=== PATIENT | male | born 1990 | race Native Hawaiian/Other Pacific Islander ===

== ENCOUNTER 2018-08-18 07:07 | Day surgery (SDC) | payer OTHER, SELFPAY ==
[2018-08-18] VITALS (8 sets, daily range): BP systolic 96–118; BP diastolic 61–69; PULSE 64–85; RESP 10–18; TEMP 36.4–36.8; O2SAT 94–98; BMI 25.7
--- NOTE | 2018-08-18 | PATH_ITS ---
[facility] Accession Number: [id number] . 01 Material submitted: . PART A: RANDOM COLON BIOPSIES PART B: COLON MASS AT 25 PART C: RECTAL MASS PART D: BASE OF RECTAL MASS . 02 Diagnosis: A. Random Colon, Biopsies: Fragments of normal appearing colon mucosa. Negative for significant architectural distortion. Negative for significant inflammation, dysplasia and malignancy. . B. Biopsies, Colon Mass at 25 cm: Large polypoid tubular adenoma apparently excised in the plane of section. . C. Biopsies, Rectal Mass: Multiple fragments of polypoid complex villous adenoma. Negative for evidence of malignancy. . D. Biopsy, Base of Rectal Mass: Small fragments of tubular adenoma, negative for malignancy. [facility]/08/20/2018 . 02 Electronically signed: . Tj Sherwood MD, Pathologist NPI- [id number] . 01 Gross description: . (A) Received in formalin, labeled random BX, are two fragments of harper-white and semitranslucent tissue (0.5 x 0.2 by less than 0.1 cm and 0.3 x 0.2 x 0.1 cm). Entirely submitted in cassette A1. (B) Received in formalin, labeled colon mass at 25, is a dark brown rubbery polypoid mass (1.5 x 0.7 x 0.4 cm). The resection margin is inked black. Bisected and entirely submitted in cassette B1. (C) Received in formalin, labeled rectal mass, are multiple pieces of harper rubbery polypoid tissue (5.0 x 3.4 x 2.1 cm in aggregate). The tissue is partially friable and the resection margin cannot be determined. Serially sectioned and entirely submitted in cassette C1-C6. (D) Received in formalin, labeled base of rectal mass, are multiple fragments of harper tissue (0.8 x 0.3 x 0.1 cm in aggregate). Filtered and entirely submitted in cassette D1. ([id number]) /MRV . 02 Pathologist provided ICD-10: D12.8 . 02 CPT . 667358, 503054, 285052, 688032 Specimen Comment: A duplicate report has been generated due to demographic updates. Performed at: 01 [facility] [address] [address], [place], [place] [id number] MD Elias Edgar MD Phone: [phone] Performed at: 02 [facility] [address] [place] [id number] MD Niki Hernandez MD Phone: [phone]
[2018-08-18] MEDS: SODIUM CHLORIDE 0.9% 1,000 ML 42 ML IV (07:38)
[2018-08-18] MEDS: fentaNYL 250 MCG/5 ML INJ IV (08:20)
[2018-08-18] MEDS: MIDAZOLAM 5 MG/5 ML VIAL IV (08:21)
--- NOTE | 2018-08-18 08:42 | PM.PREOP ---
Pre-operative Note Interval Note Pre-op Check: Yes History & Physical Reviewed by Physician and Yes Exam Performed Changes: No ASA Class (for procedural sedation): I
--- NOTE | 2018-08-18 09:14 | PM.OP.ENDO ---
Operative Date/Time/Diagnoses Date of procedure: 08/18/18 Time of procedure: 09:15 Pre-op diagnosis: See indication and findings Post-op diagnosis: same Procedure & Clinicians Study performed: Colonoscopy Same procedure as scheduled: Yes Surgeon: Rachael Llamas Procedure Notes Procedure in detail: After informed consent was obtained the patient was placed in the left lateral decubitus position. The video colonoscope was introduced the rectum and slowly advanced to the cecum. Preparation was good. On slow withdrawal mucosa was carefully examined. Scope was removed. The patient tolerated the procedure well Blood loss none Complications none Sedation fentanyl 100 mcg Versed 7 mg IV titration Total sedation time 34 min Findings 1. Very large villous adenoma appearing rectal lesion. This takes up at least 1/4 of the rectum. I was able to snare off about a 3rd of the polyp and retrieve it. It does appear to be amenable to endoscopic resection though extensive. There was a clot on 1 aspect of it is clearly the source of bleeding. Biopsies were also taken in a separate bottle at the base of the lesion though these did not seem to be any firmer or unusual then the remainder. 2. 1.2 cm pedunculated polyp at 20 cm. Hot snared removed completely 3. Otherwise negative colonoscopy to cecum. Random biopsies taken to make sure there there is not any degree of microscopic colitis contributing to diarrhea. The 1st step is going to be getting back biopsy results. Will then have to decide on referral. His liver chemistries are substantially elevated and I think in the setting, since we will be able to completely rule out a small focus of neoplasia in some part of this large lesion, that he should undergo CT of the chest and abdomen. Referrals will be made following the results of the CT scan.
--- NOTE | 2018-08-18 10:37 | SUR.PHASEII ---
assumed care from dr mateo ward in to speak with pt and his , both voiced an understanding, written instructions sent home with pt along with pictures. pt dressed when ready and left in stable condition. vss and belly remained soft.
== END 2018-08-18 10:35 | disposition home or self-care (01) ==
PROVIDERS: PCP General Practice; Visit Provider Internal Medicine Gastroenterology
PROC: 0DJD8ZZ Inspection of Lower Intestinal Tract, Via Natural or Artificial Opening Endoscopic (ICD-10-PCS; CPT 45378; principal; 2018-08-18 08:30)
DX: K92.1 Melena (principal); R19.7 Diarrhea, unspecified; D12.8 Benign neoplasm of rectum
CPT/HCPCS: 45385; 45380; 88305; J2250; J3010

== ENCOUNTER → 2018-08-30 09:03 | Outpatient (CLI) | payer OTHER, SELFPAY ==
--- NOTE | 2018-08-30 | DI.CT.S_ITS ---
PROCEDURE: CT CHEST ABD PEL W CON INDICATIONS: CHRONIC DIARRHEA. RECTAL MASS TECHNIQUE: After the administration of oral and intravenous contrast, 5 mm thick sections acquired from the lung apices to the symphysis. 5 mm coronal and sagittal reformats were performed, with additional 7 mm coronal MIP reformats through the lungs. For radiation dose reduction, the following was used: automated exposure control, adjustment of mA and/or kV according to patient size. COMPARISON: None. FINDINGS: Image quality: Excellent. CHEST: Lungs and pleura: No acute airspace opacities. 3 mm subpleural nodule noted in the right middle lobe (series 3, image 41). A 4 mm nodule noted in the right upper lobe (series 3, image 24). No pleural effusions or pneumothorax. Central and peripheral airways appear patent and normal in caliber. Mediastinum: Heart size is normal. No pericardial effusion. No mediastinal or hilar adenopathy by size criteria. Thoracic aorta and central pulmonary arteries are normal in size. Esophagus is normal in caliber. No hiatal hernia. Chest wall: No axillary or supraclavicular adenopathy by size criteria. Thyroid gland is within normal limits. ABDOMEN: Solid organs: Liver is normal in size and enhancement. Mild, diffuse fatty infiltration of the liver is noted. 1.1 cm hypoattenuating lesion with peripheral, nodular enhancement compatible with hemangioma noted in the anterior-inferior subsegment of the right lobe of the liver. Gallbladder is within normal limits. Biliary system is non dilated. Pancreas enhances normally. Spleen is normal in size and enhancement. No adrenal nodules. Kidneys demonstrate normal size and enhancement, without hydronephrosis. Peritoneum and bowel: Bowel loops demonstrate normal wall thickness and caliber. There is prominence of the rectal mucosa in a heterogeneous enhancement involving the rectal mucosa. No free fluid or air. Nodes and vessels: No retroperitoneal or mesenteric adenopathy by size criteria. Aorta and inferior vena cava are normal in size. Miscellaneous: No ventral hernias. PELVIS: Genitourinary: Bladder wall thickness is normal. Miscellaneous: No inguinal hernias or adenopathy. Bones: No suspicious bony lesions. No vertebral body compression fractures. Convex right curvature of the lumbar spine is noted. IMPRESSION: 1. 8mm right middle lobe a 4 mm right upper lobe subpleural solid nodules. Recommend follow up imaging based on criteria outlined below. 2. No lymphadenopathy based on size criteria. 3. Mild, hepatic steatosis. 4. Prominence and heterogeneity involving the rectal mucosa. Please correlate with colonoscopy findings. Fleischner Society criteria for SOLID lung nodule followup. Nodule size (mm)Low-risk patientHigh-risk patient<6 (single or multiple)No routine followup.Optional CT at 12 months. 6-8 (single or multiple)CT at 6-12 months, then optional CT at 18-24 mo.CT at 6-12 months, then CT at 18-24 months. >8 (single)CT at 3 months, PET-CT, or biopsy. Same as for low-risk pts. >8 (multiple)CT at 3-6 months, then optional CT at 18-24 mo.CT at 3-6 months, then CT at 18-24 months. Recommendations do not apply to lung cancer screening, patients with immunosuppression, or patients with known primary cancer. Dictated by: Yaneth Kline MD, PhD on 08/30/2018 at 14:43 Approved by: Yaneth Kline MD, PhD on 08/30/2018 at 14:54
== END ==
PROVIDERS: PCP General Practice; Visit Provider Internal Medicine Gastroenterology
DX: K62.9 Disease of anus and rectum, unspecified (principal); R19.7 Diarrhea, unspecified; R91.8 Other nonspecific abnormal finding of lung field; K76.0 Fatty (change of) liver, not elsewhere classified
CPT/HCPCS: 71260; 74177; Q9967

== ENCOUNTER 2019-08-09 10:25 | Emergency (ER) | payer OTHER, SELFPAY ==
[2019-08-09 10:32] VITALS: BP 128/79; PULSE 97; RESP 13; TEMP 35.6; O2SAT 98
--- NOTE | 2019-08-09 10:35 | ED.WOUNDLAC ---
HPI - Wound/Laceration General Chief Complaint: Wound/Laceration Stated Complaint: right hand cut Time Seen by Provider: 08/09/19 10:34
[2019-08-09] MEDS: BACITRACIN OINT 0.9 GM PCKT 2 APPLIC TOP (11:24)
[2019-08-09] MEDS: LIDO 1%/SOD BICARB 8.4% (10ML) 10 ML SYRINGE INJ (11:24)
--- NOTE | 2019-08-09 12:02 | PC.NURSE ---
right hand with multiple superficial laceration ,from a fan, occured at work approx 930am. [employer]. states, he got diaphoretic and with near syncopal, thats why he was sent to er.
--- NOTE | 2019-08-09 12:10 | ED_ITS ---
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 Tetanus immunization is up-to-date. Patient reports is able to move his hand without difficulty with intact sensation. No active bleeding at this time but patient states he was bleeding quite a lot when he tried to wash his hand with warm water after the injury. Related Data Allergies Allergy/AdvReac Type Severity Reaction Status Date / Time No Known Drug Allergies Allergy Verified 08/09/19 11:23 Review of Systems <BRENNAN Kirkpatrick - Last Filed: 08/09/19 21:38> Review of Systems Narrative: General: Denies fever, chills, fatigue, malaise, sweats. HEENT: Denies sinus pain, ear pain, sore throat, difficulty swallowing, dizziness. Respiratory: Denies dyspnea, cough, wheezing, hemoptysis, sputum. Cardiovascular: Denies chest pain, palpitations, orthopnea, edema. Gastrointestinal: Denies nausea, vomiting, abdominal pain, diarrhea, constipation, melena. : Denies dysuria, frequency, incontinence, hematuria, urinary retention. Musculoskeletal: Denies weakness, joint pain or bony pain. Skin: See HPI Neurologic: Denies weakness, headache, numbness, change in speech, confusion, seizures, incoordination. Psychiatric: No concerning psychosocial issues. 12-point review of systems is negative except for those stated above. Patient History <BRENNAN Kirkpatrick - Last Filed: 08/09/19 21:38> Social History Smoking Status: Never smoker Substance Use Type: does not use Exam <BRENNAN Kirkpatrick - Last Filed: 08/09/19 21:38> Narrative Exam Narrative: General appearance: well developed, well nourished, in no acute distress. Head: normocephalic, atraumatic, no scalp lesions, non-tender. Eye: pupil equal, round. EOMI. Nose: nares patent. Oral: mucosa moist. Neck/Thyroid: neck supple, full range of motion, no visible masses. Skin: no suspicious rashes, lesions over visible areas. Three vertical laceration on right palm; 2.5 cm, 1.5 cm and 1 cm. Two smaller lacerations wound edges approximated well. Heart: no clubbing, no cyanosis, no edema. Lungs: Breathing even and unlabored. No stridor. No accessory muscles used. Chest: normal shape and expansion. Abdomen: non-obese, non-distended. Neurologic: alert and oriented. 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 Psych: good eye contact, normal affect. Initial Vital Signs Initial Vital Signs: Vital Signs Temperature 96.1 F L 08/09/19 10:32 Pulse Rate 97 H 08/09/19 10:32 Respiratory Rate 13 08/09/19 10:32 Blood Pressure 128/79 08/09/19 10:32 Pulse Oximetry 98 08/09/19 10:32 Extrem Right upper extremity: hand Details: neuromotor exam normal, neurosensory exam normal, tendon exam normal, normal ROM of fingers, no swelling and laceration (3 vertical lacerations on palm); no unusual warmth <Julia Blakely DO - Last Filed: 08/10/19 07:10> Initial Vital Signs Initial Vital Signs: Vital Signs Temperature 96.1 F L 08/09/19 10:32 Pulse Rate 97 H 08/09/19 10:32 Respiratory Rate 13 08/09/19 10:32 Blood Pressure 128/79 08/09/19 10:32 Pulse Oximetry 98 08/09/19 10:32 Procedures <BRENNAN Kirkpatrick - Last Filed: 08/09/19 21:38> Laceration Repair Laceration 1: Site: hand (Palm) Side (If applicable): right Size (cm): 2.5 Description: linear Depth: simple, single layer Local Anesthetic: lidocaine 1% and with bicarb Amount of anesthesia used (mL): 2 Pre-repair: wound explored and irrigated extensively Skin layer closed with: nylon Size (cm): 4-0 Number of sutures: 2 Technique: simple, interrupted Course <BRENNAN Kirkpatrick - Last Filed: 08/09/19 21:38> Orders Ordered: Discontinued Medications Bacitracin (Bacitracin) 2 applic TOP NOW ONE Stop: 08/09/19 11:19 Last Admin: 08/09/19 11:24 Dose: 2 applic Documented by: MEISENB Lidocaine/Sodium Bicarbonate (Buffered Lidocaine 10 Ml Syr) 10 ml INJ NOW ONE Stop: 08/09/19 11:19 Last Admin: 08/09/19 11:24 Dose: 10 ml Documented by: MEISENB Vital Signs Vital signs: Vital Signs - 8 hr 08/09/19 10:32 Temperature 96.1 F L Pulse Rate 97 H Respiratory Rate 13 Blood Pressure 128/79 Pulse Oximetry 98 <Julia Blakely DO - Last Filed: 08/10/19 07:10> Orders Ordered: Discontinued Medications Bacitracin (Bacitracin) 2 applic TOP NOW ONE Stop: 08/09/19 11:19 Last Admin: 08/09/19 11:24 Dose: 2 applic Documented by: MEISENB Lidocaine/Sodium Bicarbonate (Buffered Lidocaine 10 Ml Syr) 10 ml INJ NOW ONE Stop: 08/09/19 11: Last Admin: 08/09/19 11:24 Dose: 10 ml Documented by: MEISENB Vital Signs Vital signs: Vital Signs - 8 hr 08/09/19 10:32 Temperature 96.1 F L Pulse Rate 97 H Respiratory Rate 13 Blood Pressure 128/79 Pulse Oximetry 98 MDM - Wound/Laceration <BRENNAN Kirkpatrick - Last Filed: 08/09/19 21:38> Differential Diagnosis Differential diagnosis: Likely laceration Medical Records Attestation: I reviewed the patient's medical records. MDM Narrative Medical decision making narrative: This 29-year-old male who presents to ED with 3 superficial, vertical lacerations on dominant right dominant hand from a sharp metal when he handled airplane blades. Motor, neurovascular exam was intact. Laceration was repaired with sutures. Please see procedural note. Bulky dressing was applied on right hand. Return precautions were discussed with the patient and advised to follow up with PCP for wound recheck in 2 days and suture removal for 7-10 days. Patient verbalized understanding and agrees with the treatment plan. Discharge Plan Departure Patient Disposition: Home Clinical Impression: Laceration Discharge Date/Time: 08/09/19 12:01 Instructions: DI for Laceration Repair Activity Restrictions/Additional Instructions: You have been diagnosed with [3 vertical lacerations on her right palm and repair with 2 sutures]. What to do: Please do not get your wound soaked in the water until suture removal. Keep your dressing intact for next 24 hrs. After then, you could remove your dressing, wash with soap and water. Pat dry with clean paper towel and dress it with antibiotic ointment. You can change dressing as needed and daily. Please monitor for signs and symptoms for infection such as increasing redness, swelling, warmth, pain, fever, purulent discharge. If this occurs, please return to ED or follow up with your primary care physician since your wound may be gotten infected. Please follow up with your primary care provider in 2-3 days for recheck wound. Your suture should be removed [7-10 ] days. This can be done by your primary provider, walk-in clinic or here in ED. Please keep your wound clean, dry and intact all times. Referrals: [facility] [Outside]
== END 2019-08-09 12:01 | disposition home or self-care (01) ==
LOC: ED 11:59
PROVIDERS: Emergency Provider Nurse Practitioner Family
DX: S61.411A Laceration without foreign body of right hand, initial encounter (principal); W26.8XXA Contact with other sharp object(s), not elsewhere classified, initial encounter; R07.9 Chest pain, unspecified; Y99.0 Civilian activity done for income or pay
CPT/HCPCS: 12001; 93005; 93010; 99283

== ENCOUNTER 2019-09-21 11:43 | Day surgery (SDC) | payer OTHER, SELFPAY ==
--- NOTE | 2019-09-21 11:51 | PM.HP.1 ---
History of Present Illness History of Present Illness Date Patient Seen: 09/21/19 Time Patient Seen: 11:51 Chief complaint: [id number] Narrative: History of large villous adenoma of the rectum taken off endoscopically and with the use of APC. Need for follow-up to ensure complete removal. Patient History Family & Social History Social History: household members spouse Tobacco & Substance use: Smoking Status Never smoker Substance Use Type does not use Meds Home Medications and Allergies Home Medications Medication Instructions Recorded Confirmed Type No Known Home Medications 08/18/18 08/18/18 History Allergies Allergy/AdvReac Type Severity Reaction Status Date / Time No Known Drug Allergies Allergy Verified 08/10/19 09:24 Exam Narrative Exam Narrative: Oropharynx free of lesions Chest clear to auscultation percussion Cardiac exam reveals no S3 or murmur Assessment & Plan Assessment & Plan narrative: Follow-up of endoscopic removal of a large villous adenoma of the rectum. Risks, benefits, alternatives have been explained. Will offer no sedation to patient if desired as will be most likely a very quick procedure inserting the scope a very short distance.
--- NOTE | 2019-09-21 11:53 | PM.OP.ENDO ---
Operative Date/Time/Diagnoses Date of procedure: 09/21/19 Time of procedure: 11:53 Pre-op diagnosis: See indication and findings Procedure & Clinicians Study performed: Sigmoidoscopy with possible APC Indications: Follow-up of large villous adenoma of the rectum removed endoscopically Surgeon: Rachael Llamas Procedure Notes Procedure in detail: After informed consent was obtained the patient was placed in left lateral decubitus position. The video colonoscope was introduced the rectum and slowly advanced to the sigmoid colon. On slow withdrawal mucosa was carefully examined. The scope was removed. The patient tolerated procedure well. Blood loss none Complications none Sedation none Findings 1. Extensive scar in the wall of the rectum. No residual polyp seen. 2. Otherwise negative exam Just he can now begin to have his next colonoscopy in 3 years.
[2019-09-21] MEDS: SODIUM CHLORIDE 0.9% 1,000 ML 21 ML IV (12:11)
[2019-09-21 12:12] VITALS: BP 120/74; PULSE 78; RESP 20; TEMP 35.9; O2SAT 98; BMI 24.3
[2019-09-21 12:55] VITALS: BP 114/65; PULSE 69; RESP 20; TEMP 36.1; O2SAT 100
--- NOTE | 2019-09-21 13:06 | SUR.PHASEII ---
1255 no medication was given, alert and oriented. IV dc'd, clothes given.
--- NOTE | 2019-09-21 14:15 | SUR.PHASEII ---
[id number] returned to [facility] from OR, no medications given; pt alert and oriented, no pain. Voided, fluids given, No questions/concerns. Stable and pleasant.
== END 2019-09-21 13:10 | disposition home or self-care (01) ==
PROVIDERS: Family Provider General Practice; PCP General Practice; Visit Provider Internal Medicine Gastroenterology
PROC: 0DJD8ZZ Inspection of Lower Intestinal Tract, Via Natural or Artificial Opening Endoscopic (ICD-10-PCS; CPT 45378; principal; 2019-09-21 13:00)
DX: Z86.010 Personal history of colon polyps (principal)
CPT/HCPCS: 45330

== ENCOUNTER 2021-06-26 17:54 | Emergency (ER) | payer OTHER, SELFPAY ==
[2021-06-26 18:32] VITALS: BP 123/74; PULSE 84; RESP 22; TEMP 36.6; O2SAT 94; BMI 28.7
--- NOTE | 2021-06-26 22:22 | ED.SKABFB ---
HPI - Skin/Abscess/Foreign Bdy General Chief complaint: Skin/Abscess/Foreign Body Stated complaint: red lump on forehead Time Seen by Provider: 06/26/21 22:18 Source: patient Mode of arrival: Ambulatory Limitations: no limitations History of Present Illness HPI narrative: Patient is a 31-year-old male who presents with swelling on his forehead. He says that he has had some mild growth on his forehead his over the last year or so. However his kid hit his head against his forehead 2 days ago and he thinks it has been swelling more since then. He also developed pimple and redness right over the area. He says it hurts when it is moved. No fever or chills. It is not draining. Related Data Home Medications Medication Instructions Recorded Confirmed No Known Home Medications 08/18/18 09/21/19 Allergies Allergy/AdvReac Type Severity Reaction Status Date / Time No Known Drug Allergies Allergy Verified 08/10/19 09:24 Review of Systems Review of Systems Narrative: GENERAL: Denies chills,fever HEENT: Denies throat pain RESPIRATORY: Denies dyspnea, cough, wheezing CARDIOVASCULAR: Denies chest pain, palpitations GASTROINTESTINAL: Denies nausea, vomiting MUSCULOSKELETAL: Denies extremity pain, injury SKIN: See HPI NEUROLOGIC: Denies weakness, dizziness, headache, numbness 8 point review of systems is negative except for those stated above and HPI Patient History Medical History (Updated 06/26/21 @ 23:04 by Jerri Padron DO) Hematochezia Surgical History (Updated 09/21/19 @ 12:20 by Sindy Gamboa RN) History of colonoscopy Social History (System 08/10/19 @ 09:24 by Nathalia Phillips) household members: spouse Smoking Status: Never smoker Smoking Status: Never smoker tobacco type: vaping alcohol intake frequency: holidays/special occasions only Substance Use Type: does not use Exam Initial Vital Signs Initial Vital Signs: Vital Signs Temperature 98 F 06/26/21 18:32 Pulse Rate 84 06/26/21 18:32 Respiratory Rate 22 06/26/21 18:32 Blood Pressure 123/74 06/26/21 18:32 Pulse Oximetry 94 06/26/21 18:32 GENERAL: Well-appearing, well-nourished and in no acute distress. CARDIOVASCULAR: peripheral pulses in tact, cap refill <2 sec RESPIRATORY: No respiratory distress, speaks in full sentences without difficulty EXTREMITIES: Normal range of motion, no clubbing or edema. Neurovascularly intact NEUROLOGICAL: Cranial nerves II through XII grossly intact. Normal gait and speech. SKIN: Right forehead just above the eyebrow there is noted to be swelling but movable mass of about 2 cm x 2 cm. His small erythema noted over it. No induration. Not quite fluctuant. Procedures Abscess I/D I&D #1: Site: face (Right forehead) Side (if applicable): right Local Anesthetic: lidocaine 1% Amount of anesthesia used (mL): 1 Technique: needle aspiration and incised with #11 blade Amount of fluid expressed (mL): 0 Complications: other (No fluid drainage however hardened and possible fatty tissue removed. Circular in intact.) Course Orders Ordered: Discontinued Medications Lidocaine HCl (Lidocaine 1% (Pf)) 2 ml SUBCUT NOW ONE Stop: 06/26/21 22:23 Last Admin: 06/26/21 22:59 Dose: 2 ml Documented by: LEVI Vital Signs Vital signs: Vital Signs - 8 hr 06/26/21 18:32 06/26/21 23:16 Temperature 98 F Pulse Rate 84 76 Respiratory Rate 22 16 Blood Pressure 123/74 114/75 Pulse Oximetry 94 95 MDM - Skin/Abscess/Foreign Bdy MDM Narrative Medical decision making narrative: Patient had weird harden abnormality removed from site. It is labeled and sent to lab for pathology and analysis. Probable sebaceous cyst. There is no longer any raised area. Erythema is likely a simple pimple no significant erythema no abscess. No need for any antibiotics. Discharge Plan Departure Patient Disposition: Home Clinical Impression: Lipoma of forehead Instructions: DI for Lipoma Removal Activity Restrictions/Additional Instructions: *You have been diagnosed with mass on for head *What to do: The mass on her forehead was sent to pathology. Possible fatty mass versus something else. We will have the results in a few weeks *Continue to take medications as directed *Follow up with your primary care provider in 2-3 days *Return to ER if you should have increased redness pus swelling pain or any new, worsening or concerning symptoms Prescriptions: No Action No Known Home Medications RF: 0 Referrals: Abdoul Salmon MD [Primary Care Provider] -
[2021-06-26] MEDS: LIDOCAINE 1% (PF) 2 ML SUBCUT (22:59)
[2021-06-26 23:16] VITALS: BP 114/75; PULSE 76; RESP 16; O2SAT 95
== END 2021-06-26 23:17 | disposition home or self-care (01) ==
PROVIDERS: Emergency Provider Emergency Medicine; Family Provider General Practice; PCP General Practice
DX: D17.0 Benign lipomatous neoplasm of skin and subcutaneous tissue of head, face and neck (principal)
CPT/HCPCS: 10060; 99281; 99283

== ENCOUNTER → 2024-07-26 19:36 | Outpatient (CLI) | payer OTHER, SELFPAY ==
--- NOTE | 2024-07-26 | DI.MRI.S_ITS ---
PROCEDURE: MR CERVICAL SPINE WO CON INDICATIONS: INTERMITTENT CERVICAL PAIN W/RADIATION TO R ELBOW TECHNIQUE: Noncontrast sagittal T1 spin echo and T2 fast spin echo, sagittal STIR, foraminal oblique sagittal T2 fast spin echo, and axial gradient echo or T2 fast spin echo through the cervical spine. COMPARISON: None. FINDINGS: Image quality: Excellent. Alignment and Curvature: There is straightening of the normal cervical lordosis. No focal AP alignment abnormality is seen. Bone Marrow: Marrow demonstrates normal overall signal. Spinal Cord: Visualized spinal cord has normal size and signal. No cerebellar tonsillar herniation. Paraspinous Soft Tissues: No paravertebral masses. Prevertebral soft tissues are normal in thickness. C2-C3: Normal appearance. C3-C4: Mild loss of disc height is seen. Loss of disc signal is seen. Mild to moderate disc osteophyte complex is seen, with a central/right disc extrusion, with mild superior migration of the disc material, as on series 4, image 7. Moderate facet joint hypertrophy is seen. There is at least moderate right-sided and moderate left-sided neural foraminal narrowing. Moderate central canal narrowing is seen. There is associated mass effect upon the ventral spinal cord. C4-C5: The disc height and disk signal are relatively well-preserved. A mild degree of generalized disc osteophyte complex is seen. Moderate facet joint hypertrophy is seen. There is moderate right-sided and minimal left-sided neural foraminal narrowing. Minimal central canal narrowing is seen. C5-C6: The disc height and disk signal are relatively well-preserved. Mild to moderate disc osteophyte complex is seen, with a mild central/right disc osteophyte protrusion. Mild to moderate facet hypertrophy is seen. There is moderate right-sided and no left-sided neural foraminal narrowing. Mild to moderate central canal narrowing is seen, with a minimal degree of mass effect upon the ventral spinal cord. C6-C7: The disc height and disk signal are relatively well-preserved. Moderate generalized disc osteophyte complex is seen. There is a mild central disc osteophyte protrusion. Mild facet joint hypertrophy is seen. There is at least moderate right-sided and moderate left-sided neural foraminal narrowing. Moderate central canal narrowing is seen. There is associated mass effect upon the ventral spinal cord. C7-T1: Normal appearance. IMPRESSION: Multiple levels of significant cervical spine degenerative change can be seen, which are more prominent than would be expected for a patient of this age. Dictated by: Jamison Osullivan M.D. on 07/27/2024 at 13:19 Approved by: Jamison Osullivan M.D. on 07/27/2024 at 13:22
== END ==
LOC: MRI 19:37
PROVIDERS: Family Provider General Practice; PCP General Practice
DX: M47.22 Other spondylosis with radiculopathy, cervical region (principal)
CPT/HCPCS: 72141

== ENCOUNTER 2024-12-01 10:56 | Emergency (ER) | payer OTHER, SELFPAY ==
[2024-12-01 11:18] VITALS: BP 145/87; PULSE 101; RESP 14; TEMP 36.8; O2SAT 95; BMI 28.7
--- NOTE | 2024-12-01 11:20 | DI.RAD.S_ITS ---
PROCEDURE: XR KNEE RT 3V INDICATIONS: knee pain TECHNIQUE: 3 views of the knee were acquired. COMPARISON: None. FINDINGS: Bones: No fractures or dislocations. No suspicious bony lesions. Soft tissues: No joint effusion. No suspicious soft tissue calcifications. IMPRESSION: No acute bony abnormality or significant effusion. Dictated by: Yaneth Kline MD, PhD on 12/01/2024 at 11:40 Approved by: Yaneth Kline MD, PhD on 12/01/2024 at 11:41
--- NOTE | 2024-12-01 13:21 | ED.LOWEXIN ---
HPI - Extremity Injury (Lower) <Rocio Cruz PA-C - Last Filed: 12/01/24 16:25> General Chief Complaint: Extremity Injury, Lower Stated Complaint: Right knee pain Time Seen by Provider: 12/01/24 13:07 Source: patient Mode of arrival: Ambulatory History of Present Illness HPI Narrative: Mr. 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 He has been ambulatory since but he continues to have discomfort in the right knee. He denies any heel pain, back pain, any head trauma buttocks trauma back trauma neck pain chest pain shortness of breath or other symptoms. No dizziness or amnesia. No symptoms precipitating the fall. No numbness tingling or weakness of the leg. Related Data Home Medications Medication Instructions Recorded Confirmed No Known Home Medications 08/18/18 09/21/19 Allergies Allergy/AdvReac Type Severity Reaction Status Date / Time No Known Drug Allergies Allergy Verified 12/01/24 11:18 Review of Systems <Rocio Cruz PA-C - Last Filed: 12/01/24 16:25> Review of Systems ROS Unobtainable: All systems reviewed & are unremarkable except as noted in HPI and below Patient History <Rocio Cruz PA-C - Last Filed: 12/01/24 16:25> Medical History Hematochezia Surgical History History of colonoscopy Social History household members: spouse Smoking Status: Former smoker Smoking Status: Former smoker tobacco type: vaping alcohol intake frequency: holidays/special occasions only Exam <Rocio Cruz PA-C - Last Filed: 12/01/24 16:25> Narrative Exam Narrative: GENERAL: 34 year old patient appears stated age. Well-developed patient, in no acute distress. HEAD: Atraumatic. Normocephalic. NECK: Trachea midline. Cervical ROM intact. CARDIOVASCULAR: Regular rate and rhythm. RESPIRATORY: ?Nonlabored respirations. ?Speaking in clear, full sentences. ?Clear to auscultation. Breath sounds equal bilaterally. No wheezes, rales, or rhonchi. ? GASTROINTESTINAL: Abdomen soft, non-tender, nondistended. EXTREMITIES: No obvious deformity of right knee. There is subjective pain with full extension of the right knee. No tenderness to palpation, no obvious joint laxity, no large effusion, no bruising or abrasions. No tenderness to palpation of remainder of appendicular skeleton. Strong DP and PT pulses bilaterally and brisk capillary refill in the toes. Bilateral Achilles tendons intact. BACK: Nontender without deformity or crepitance. NEURO: AOx3. ?Clear speech. ?Moves all 4 extremities appropriately. 5/5 bilateral lower extremity knee flexion and extension strength. SKIN: No rash or erythema of visible areas Initial Vital Signs Initial Vital Signs: Vital Signs Temperature 98.3 F 12/01/24 11:18 Pulse Rate 101 H 12/01/24 11:18 Respiratory Rate 14 12/01/24 11:18 Blood Pressure 145/87 H 12/01/24 11:18 Pulse Oximetry 95 12/01/24 11:18 Oxygen Delivery Method Room Air 12/01/24 11:18 <Chris Mckinney MD - Last Filed: 12/01/24 16:36> Initial Vital Signs Initial Vital Signs: Vital Signs Temperature 98.3 F 12/01/24 11:18 Pulse Rate 101 H 12/01/24 11:18 Respiratory Rate 14 12/01/24 11:18 Blood Pressure 145/87 H 12/01/24 11:18 Pulse Oximetry 95 12/01/24 11:18 Oxygen Delivery Method Room Air 12/01/24 11:18 Course <Rocio Cruz PA-C - Last Filed: 12/01/24 16:25> Orders Ordered: ED Orders 12/01/24 11:20 XR knee RT 3V Stat Discontinued Medications Acetaminophen (Acetaminophen 325 Mg Tablet) 975 mg PO NOW ONE Stop: 12/01/24 13:39 Last Admin: 12/01/24 13:52 Dose: 975 mg Documented By: MOUSTAPHA Ibuprofen (Ibuprofen 400 Mg Tablet) 600 mg PO NOW ONE Stop: 12/01/24 13:39 Last Admin: 12/01/24 13:53 Dose: 600 mg Documented By: MOUSTAPHA Vital Signs Vital signs: Vital Signs - 8 hr 12/01/24 11:18 12/01/24 14:05 Temperature 98.3 F Pulse Rate 101 H 79 Respiratory Rate 14 14 Blood Pressure 145/87 H 116/70 Pulse Oximetry 95 96 Oxygen Delivery Method Room Air Room Air <Chris Mckinney MD - Last Filed: 12/01/24 16:36> Orders Ordered: ED Orders 12/01/24 11:20 XR knee RT 3V Stat Discontinued Medications Acetaminophen (Acetaminophen 325 Mg Tablet) 975 mg PO NOW ONE Stop: 12/01/24 13:39 Last Admin: 12/01/24 13:52 Dose: 975 mg Documented By: MOUSTAPHA Ibuprofen (Ibuprofen 400 Mg Tablet) 600 mg PO NOW ONE Stop: 12/01/24 13:39 Last Admin: 12/01/24 13:53 Dose: 600 mg Documented By: MOUSTAPHA Vital Signs Vital signs: Vital Signs - 8 hr 12/01/24 11:18 12/01/24 14:05 Temperature 98.3 F Pulse Rate 101 H 79 Respiratory Rate 14 14 Blood Pressure 145/87 H 116/70 Pulse Oximetry 95 96 Oxygen Delivery Method Room Air Room Air MDM - Extremity Injury (Lower) <Rocio Cruz PA-C - Last Filed: 12/01/24 16:25> Medical Records Attestation: I reviewed the patient's medical records. Imaging Data X-Ray Right knee: My Impression: On my independent interpretation of right knee x-ray there is no fracture. Radiologist's Impression: PROCEDURE: XR KNEE RT 3V INDICATIONS: knee pain TECHNIQUE: 3 views of the knee were acquired. COMPARISON: None. FINDINGS: Bones: No fractures or dislocations. No suspicious bony lesions. Soft tissues: No joint effusion. No suspicious soft tissue calcifications. IMPRESSION: No acute bony abnormality or significant effusion. 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 Patient landed on his feet and did not fall over hit his head. He has no pain besides the right knee. Differential diagnosis includes but is not limited to right knee fracture, sprain, strain, effusion, ligament or tendon injury, etc. On exam the patient is in no acute distress, nontoxic appearing, lower extremities neurovascularly intact, 5/5 bilateral knee flexion and extension strength, no gross reproducible joint laxity. Right knee x-ray obtained in triage reveals no acute bony abnormality or effusion. Suspect right knee strain, recommended rice therapy, Raj wrap and crutches, ibuprofen and Tylenol, follow up with PCP and Orthopedics. Patient verbalized understanding of all information is agreeable with the plan. He is stable for discharge home. Discharge Plan Departure Patient Disposition: Home Clinical Impression: Right knee sprain Qualifiers: Encounter type: initial encounter Involved ligament of knee: unspecified ligament Qualified Code(s): S83.91XA - Sprain of unspecified site of right knee, initial encounter Fall Qualifiers: Encounter type: initial encounter Qualified Code(s): W19.XXXA - Unspecified fall, initial encounter Activity Restrictions/Additional Instructions: Dear Mr. Ross, Thank you for coming to the emergency department today. Today you were evaluated for right knee pain after fall. Your x-ray reveals no fractures or dislocations. I suspect a sprain of the right knee soft tissues, please follow up with your primary care doctor and [facility] at [phone] for further evaluation. Please use RICE therapy for your pain in addition to ibuprofen/acetaminophen. Rest the painful area. Ice the area of pain/swelling for at least 15 minutes, 4x a day. Compress the area of swelling using a brace, wrap, or splint if applied. Elevate the painful or swollen extremity by supporting it above the level of the heart with pillows when sitting or laying. Please take Ibuprofen (Motrin/Advil) or Acetaminophen (Tylenol) for pain. These are available over the counter. You may take Ibuprofen 600 mg every 8 hours with food for pain. You may also take Acetaminophen 650 mg every 4-6 hours for pain. Do not exceed 3000 mg of Tylenol a day as this can cause liver damage. Do not drink alcohol with either of these medications. Please follow up with your primary care doctor within the next 2-3 days for ER follow-up. (If you do not have a PCP you can call [phone]. ?to schedule an appointment with an [facility] Primary Care Provider) IF YOU DEVELOP ANY NEW OR WORSENING SYMPTOMS, RETURN TO THE ER! Please read the attached instructions, they highlight more specific treatments and interventions for you at home. Thank you for letting me participate in your care, Rocio Cruz PA-C Prescriptions: No Action No Known Home Medications Referrals: Abdoul Salmon MD [Primary Care Provider] - Stand Alone Forms: Patient Portal/API/Survey, Work Release Note ED Sign-out <Chris Mckinney MD - Last Filed: 12/01/24 16:36> Cosign ED Attending Cosignature Attestation: I was immediately available in the department for consultation. ?This documentation has been reviewed and I agree with assessment and plan. Supervised by Chris Mckinney MD
[2024-12-01] MEDS: ACETAMINOPHEN 325 MG TABLET 975 MG PO (13:52)
[2024-12-01] MEDS: IBUPROFEN 400 MG TABLET 600 MG PO (13:53)
[2024-12-01 14:05] VITALS: BP 116/70; PULSE 79; RESP 14; O2SAT 96
== END 2024-12-01 14:10 | disposition home or self-care (01) ==
PROVIDERS: Emergency Provider Physician Assistant; Family Provider General Practice; PCP General Practice
DX: S83.91XA Sprain of unspecified site of right knee, initial encounter (principal); W17.89XA Other fall from one level to another, initial encounter
CPT/HCPCS: 73562; 99283